=== PATIENT | female | born 1935 | race Caucasian/White ===

== ENCOUNTER 2019-09-12 16:12 | Emergency (ER) | payer MEDICARE, OTHER ==
[2019-09-12] MEDS ORDERED: Aspirin Chewable 81 MG TAB ONE (16:48)
[2019-09-12] MEDS ORDERED: Furosemide 40 MG/4 ML VIAL ONE (16:48)
[2019-09-12 16:54] LABS: #Basophils 0.1 thou/uL (0.0-0.2); #Eosinphils 0.1 thou/uL (0.0-0.7); #Lymphocytes 1.3 thou/uL (1.20-3.40); #Monocytes 0.5 thou/uL (0.11-0.59); #Neutrophils 3.6 thou/uL (1.40-6.50); %Basophils 0.9 % (0.0-1.0); %Eosinophils 2.6 % (0.0-10.0); %Monocytes 8.8 % (0.0-10.0); %Neutrophils 63.7 % (42.0-75.0); Hemoglobin 10.3 g/dL (12.0-16.0); Mean Corpuscular HGB CONC 31.5 g/dL (32.0-36.0); Mean Corpuscular Hemoglobin 28.5 pg (27.0-31.0); Mean Corpuscular Volume 90.6 fL (78.0-98.0); Mean Platelet Volume 8.1 fL (7.4-10.4); Platelet Count 193 thou/uL (130-400); RBC Distribution Width 12.1 % (11.5-14.5); Red Blood Cell (RBC) Count 3.61 mill/uL (4.20-5.40); White Blood Cell (WBC) Count 5.6 thou/uL (4.8-10.8)
--- NOTE | 2019-09-12 16:54 | RAD ---
Exam: Chest one view HISTORY:Dyspnea Comparison: None FINDINGS: Cardiac silhouette: Normal Aorta: Atherosclerosis Pulmonary vessels: Normal Costophrenic angles: Clear LUNGS: No masses or consolidation. Pneumothorax: None Osseous abnormalities: None IMPRESSION: 1. No acute cardiopulmonary process. 2. Atherosclerosis.
[2019-09-12 17:10] LABS: ALT (SGPT) 15 U/L (8-55); AST (SGOT) 15 U/L (5-34); Alkaline Phosphatase 73 U/L (40-110); Anion Gap 17 mmol/L (10-20); BUN (Urea Nitrogen) 44 mg/dL (9.8-20.1); Bilirubin, Total 0.4 mg/dL (0.2-1.2); Calc. Creatinine Clearance 0 mL/min (70-130); Calcium 8.9 mg/dL (7.8-10.44); Carbon Dioxide 21 mmol/L (23-31); Chloride 103 mmol/L (98-107); Estimated GFR-MDRD 14; Globulin 2.6 g/dL (2.4-3.5); Glucose 103 mg/dL (83-110); Potassium 5.4 mmol/L (3.5-5.1); Protein, Total 6.6 g/dL (6.0-8.3); Sodium 136 mmol/L (136-145)
== END 2019-09-12 19:20 | disposition short-term general hospital (02) ==
LOC: MADERS 16:12
DX: I44.7 Left bundle-branch block, unspecified (principal); N28.9 Disorder of kidney and ureter, unspecified; I11.0 Hypertensive heart disease with heart failure; I50.9 Heart failure, unspecified; Z79.899 Other long term (current) drug therapy; Z11.59 Encounter for screening for other viral diseases
CPT/HCPCS: 71045; 80053; 83880; 84484; 85025; 87635; 93005; 96374; J1940; U0002